=== PATIENT | male | born 1995 | race Caucasian/White ===

== ENCOUNTER 2018-03-25 20:45 | Emergency (ER) | payer BC ==
[~2018-03-25] VITALS: Ht 172.7 cm; Wt 83.0 kg
[2018-03-25 20:47] VITALS: BP 123/79
== END 2018-03-25 21:08 | disposition home or self-care (01) ==
LOC: ED 20:45
DX: S00.431A Contusion of right ear, initial encounter (principal); X58.XXXA Exposure to other specified factors, initial encounter; Y93.89 Activity, other specified; Y99.8 Other external cause status; Y92.89 Other specified places as the place of occurrence of the external cause
CPT/HCPCS: 99281